=== PATIENT | male | born 1990 | race American Indian/Alaskan Native ===

== ENCOUNTER 2017-10-30 09:19 | Emergency (ER) | payer OTHER ==
[2017-10-30] MEDS ORDERED: Sodium Chloride 0.9% 1,000 ML IV STA (10:29)
[2017-10-30 11:09] LABS: BASO # 0.01 K/mm3 (0.0-2.0); BASO % 0.2 % (0.0-3.0); EOS # 0.3 (0.0-0.7); GRAN # 3.36 (1.4-6.5); GRAN % 52.3 % (50.0-68.0); HEMOGLOBIN 13.1 g/dL (14.0-18.0); LYMPH # 2.3 (1.2-3.4); LYMPH % 35.3 % (22.0-35.0); MEAN CELL VOLUME 92.6 fl (80.0-105.0); MEAN CORPUSCULAR HEMOGLOBIN 28.7 pg (25.0-35.0); MEAN PLATELET VOLUME 11.5 fl (7.0-11.0); MONO # 0.5 (0.1-0.6); MONO % 8.2 % (1.0-6.0); RBC 4.57 10^6/uL (3.5-6.1); RED CELL DISTRIBUTION WIDTH 12.2 % (11.5-14.5); WHITE BLOOD COUNT 6.4 10^3/ul (4.5-11.0)
[2017-10-30 11:11] VITALS: RESP 18; TEMP 97.9
[2017-10-30 11:17] LABS: ALB/GLOB RATIO 1.3 (1.1-1.8); ALBUMIN 4.1 g/dL (3.0-4.8); ALT/SGPT 45 U/L (7-56); AST/SGOT 41 U/L (17-59); BLOOD UREA NITROGEN 11 mg/dL (7-21); CALCIUM 9.7 mg/dL (8.4-10.5); GFR AFRICAN-AMERICAN > 60; GFR NON-AFRICAN AMERICAN > 60
[2017-10-30 11:21] LABS: INFLUENZA A B NEGATIVE FOR FLU A/B (NEGATIVE)
--- NOTE | 2017-10-30 12:02 | ED PDOC ---
Arrival/HPI - General Chief Complaint: ENT Problem Time Seen by Provider: 10/30/17 09:21 Historian: Patient - History of Present Illness Narrative History of Present Illness (Text): 10/30/17 11:58 27-year-old male presents today with a one-week history of intermittent headaches. Patient states he has a history of headaches but he can't seem to get this headache to go away. Patient states the headache is throbbing and fluctuates from the frontal to the posterior to the right side of the head. Patient also states over the past 3-4 days he developed sore throat and subjective fevers at home. Patient complaining of chills and body aches. He denies dizziness or weakness. Denies abdominal pain. No nausea or vomiting. No other complaints. Positive sick contacts at home. Past Medical History - Provider Review Nursing Documentation Reviewed: Yes - Travel History Have you recently traveled outside [place] w/in the past 3 mons?: No - Infectious Disease Hx of Infectious Diseases: None - Tetanus Immunization Tetanus Immunization: Unknown - Pulmonary Hx Asthma: Yes - Psychiatric Hx Depression: Yes Hx Substance Use: No - Anesthesia Hx Anesthesia: No Hx Anesthesia Reactions: No Hx Malignant Hyperthermia: No Family/Social History - Physician Review Nursing Documentation Reviewed: Yes Family/Social History: Unknown Family HX Smoking Status: Never Smoked Hx Alcohol Use: No Hx Substance Use: No Allergies/Home Meds Allergies/Adverse Reactions: Allergies No Known Allergies Allergy (Verified 10/30/17 09:58) Home Medications: Home Meds Medication Instructions Recorded Confirmed Venlafaxine [Effexor] 1 tab PO DAILY 10/30/17 10/30/17 Review of Systems - Review of Systems Constitutional: Fevers. absent: Fatigue ENT: Sore Throat, Sinus Congestion Respiratory: absent: SOB, Cough Cardiovascular: absent: Chest Pain, Palpitations Gastrointestinal: absent: Abdominal Pain, Nausea, Vomiting Genitourinary Male: absent: Dysuria Musculoskeletal: Arthralgias. absent: Neck Pain Skin: absent: Rash, Pruritis Neurological: Headache. absent: Dizziness Psychiatric: absent: Anxiety, Depression Physical Exam Vital Signs Reviewed: Yes Vital Signs Temp Pulse Resp BP Pulse Ox 10/30/17 12:23 79 18 121/68 98 10/30/17 11:10 97.9 F 86 18 124/71 97 10/30/17 09:34 97.1 F L 96 H 20 126/78 98 Temperature: Afebrile Blood Pressure: Normal Pulse: Regular Respiratory Rate: Normal Appearance: Positive for: Well-Appearing, Non-Toxic, Comfortable Pain Distress: None Mental Status: Positive for: Alert and Oriented X 3 - Systems Exam Head: Present: Atraumatic Conjunctiva: Present: Normal Ears: Present: Normal, NORMAL TM Mouth: Present: Moist Mucous Membranes, Normal Lips, Normal Tounge. No: Drooling, Trismus Pharnyx: Present: ERYTHEMA. No: EXUDATE, TONSILS ENLARGED, Peritonsilar Swelling, Uvular Deviation, Muffled/Hoarse Voice Nose (External): Present: Atraumatic Nose (Internal): Present: Normal Inspection, Clear Mucous Neck: Present: Normal Range of Motion, Trachea Midline. No: Meningeal Signs, Lymphadenopathy Respiratory/Chest: Present: Clear to Auscultation, Good Air Exchange. No: Respiratory Distress, Accessory Muscle Use Cardiovascular: Present: Regular Rate and Rhythm, Normal S1, S2. No: Murmurs Abdomen: No: Tenderness, Rebound, Guarding Back: Present: Normal Inspection Upper Extremity: Present: Normal ROM Lower Extremity: Present: Normal ROM Neurological: Present: GCS=15, Speech Normal Skin: Present: Warm, Dry, Normal Color. No: Rashes Psychiatric: Present: Alert, Oriented x 3 Medical Decision Making ED Course and Treatment: 10/30/17 12:00 Patient is nontoxic well-appearing. C/o bodyaches, sore throat and headache toradol IM NS iv bolus rapid flu; negative rapid strep; Positive amoxicillin PO head ct; FINDINGS: HEMORRHAGE: No intracranial hemorrhage. BRAIN: No mass effect or edema. No atrophy or chronic microvascular ischemic changes. VENTRICLES: Unremarkable. No hydrocephalus. CALVARIUM: Unremarkable. PARANASAL SINUSES: Unremarkable as visualized. No significant inflammatory changes. MASTOID AIR CELLS: Unremarkable as visualized. No inflammatory changes. OTHER FINDINGS: None. IMPRESSION: Normal CT of the Head. Patient reassessment: Pt feeling better; vitals stable. discussed all results with patient. I advised follow up with primary care physician within the next 2 days. I advised increase fluids and return if symptoms worsen persist or if new symptoms develop Patient verbalizes understanding of discharge instructions and need for immediate followup. all aspects of this case were discussed the attending of record. IMPRESSION;pharyngitis Motrin every 6 hours as needed for pain/fever reduction Increase fluids Amoxicillin 3 times daily x 10 days. Saltwater gargles, throat lozenges Followup with primary care physician the next 2 days Return if symptoms worsen persist or if new symptoms develop: Continued high fevers, dizziness, weakness, chest pain or shortness of breath vomiting/diarrhea , or if any other concerning symptoms develop 10/30/17 13:48 - Lab Interpretations Lab Results: 10/30/17 10:50 10/30/17 10:50 Lab Results 10/30/17 10:50: WBC 6.4, RBC 4.57, Hgb 13.1 L, Hct 42.3, MCV 92.6, MCH 28.7, MCHC 31.0, RDW 12.2, Plt Count 261, MPV 11.5 H, Gran % 52.3, Lymph % (Auto) 35.3 H, [place] % (Auto) 8.2 H, Eos % (Auto) 4.0, Baso % (Auto) 0.2, Gran # 3.36, Lymph # (Auto) 2.3, [place] # (Auto) 0.5, Eos # (Auto) 0.3, Baso # (Auto) 0.01 10/30/17 10:50: Sodium 138, Potassium 4.0, Chloride 101, Carbon Dioxide 31, Anion Gap 11, BUN 11, Creatinine 1.4, Est GFR ( Amer) > 60, Est GFR (Non- Af Amer) > 60, Random Glucose 88, Calcium 9.7, Total Bilirubin 1.0, AST 41, ALT 45, Alkaline Phosphatase 55, Total Protein 7.3, Albumin 4.1, Globulin 3.2, Albumin/Globulin Ratio 1.3 10/30/17 10:35: Influenza Typ A,B (EIA) Negative for flu a/b, Grp A Beta Strep Ag Positive H - RAD Interpretation Radiology Orders: 10/30/17 12:23 HEAD W/O CONTRAST [CT] Stat - Medication Orders Current Medication Orders: Discontinued Medications Amoxicillin (Amoxil 500 Mg Cap) 500 mg PO STAT STA PRN Reason: Protocol Stop: 10/30/17 11:37 Last Admin: 10/30/17 12:00 Dose: 500 mg Sodium Chloride (Sodium Chloride 0.9%) 1,000 mls @ 999 mls/hr IV .Q1H1M STA Stop: 10/30/17 11:29 Last Admin: 10/30/17 10:57 Dose: 999 mls/hr eMAR Start Stop Document 10/30/17 10:57 GMI (Rec: 10/30/17 10:57 GMI [place] [id number]) Intravenous Solution Start Date 10/30/17 Start Time 10:57 End Date 10/30/17 End time 12:26 Total Infusion Time 89 Ketorolac Tromethamine (Toradol) 30 mg IVP STAT STA Stop: 10/30/17 10:30 Last Admin: 10/30/17 10:58 Dose: 30 mg [facility] Pain Assessment Document 10/30/17 10:58 GMI (Rec: 10/30/17 10:58 GMI [place] [id number]) Pain Reassessment Is this a pain reassessment? Yes Sleep Is patient sleeping during reassessment? No Presence of Pain Presence of Pain Yes Pain Scale Used Pain Scale Used Numeric Location Upper or Lower Upper Pain Location Body Machine Technician Description Description Constant Pain Behavior Facial Grimacing Alleviating Factors/Management Distraction Techniques Alleviating Factors Medication IVP Administration Document 10/30/17 10:58 GMI (Rec: 10/30/17 10:58 GMI [place] [id number]) Charges for Administration # of IVP Administrations 1 Re-Assess: [facility] Pain Assessment Document 10/30/17 11:58 GMI (Rec: 10/30/17 12:27 GMI [place] [id number]) Pain Reassessment Is this a pain reassessment? Yes Sleep Is patient sleeping during reassessment? No Presence of Pain Presence of Pain Yes Pain Scale Used Pain Scale Used Numeric Location Upper or Lower Upper Pain Location Body Machine Technician Description Description Intermittent Intensity of Pain at present 5 Alleviating Factors Position Change Disposition/Present on Arrival - Present on Arrival Any Indicators Present on Arrival: No History of DVT/PE: No History of Uncontrolled Diabetes: No Urinary Catheter: No History of Decub. Ulcer: No History Surgical Site Infection Following: None - Disposition Have Diagnosis and Disposition been Completed?: Yes Diagnosis: Pharyngitis Disposition: HOME/ ROUTINE Disposition Time: 13:49 Patient Plan: Discharge Condition: GOOD Discharge Instructions (ExitCare): Sore Throat, Adult (DC) Additional Instructions: Motrin every 6 hours as needed for pain/fever reduction Increase fluids Amoxicillin 3 times daily x 10 days. Saltwater gargles, throat lozenges Followup with primary care physician the next 2 days Return if symptoms worsen persist or if new symptoms develop: Continued high fevers, dizziness, weakness, chest pain or shortness of breath vomiting/diarrhea , or if any other concerning symptoms develop Prescriptions: Amoxicillin 500 mg PO TID #30 tab Ibuprofen [Motrin] 600 mg PO Q6H PRN #20 tab PRN Reason: pain/fever reduction Referrals: Carlton Baig DO [Doctor Oste[facility]] - Follow up with primary Jeniffer Cano MD [Staff Provider] - Follow up with primary Forms: [employer] (Polish), WORK NOTE
--- NOTE | 2017-10-30 13:28 | CT ---
PROCEDURE: CT HEAD WITHOUT CONTRAST. HISTORY: headache x 1 week COMPARISON: None available. TECHNIQUE: Axial computed tomography images were obtained through the head/brain without intravenous contrast. Radiation dose: Total exam DLP = 839 mGy-cm. This CT exam was performed using one or more of the following dose reduction techniques: Automated exposure control, adjustment of the mA and/or kV according to patient size, and/or use of iterative reconstruction technique. FINDINGS: HEMORRHAGE: No intracranial hemorrhage. BRAIN: No mass effect or edema. No atrophy or chronic microvascular ischemic changes. VENTRICLES: Unremarkable. No hydrocephalus. CALVARIUM: Unremarkable. PARANASAL SINUSES: Unremarkable as visualized. No significant inflammatory changes. MASTOID AIR CELLS: Unremarkable as visualized. No inflammatory changes. OTHER FINDINGS: None. IMPRESSION: Normal CT of the Head.
[2017-10-30 14:03] VITALS: BP 124/51; PULSE 65; O2SAT 100
== END 2017-10-30 14:12 | disposition home or self-care (01) ==
LOC: MERGE 09:19 → ED 09:19
DX: J02.9 Acute pharyngitis, unspecified (principal)
CPT/HCPCS: 70450; 80053; 85025; 87430; 87804; 96361; 96374; 99284; J1885; J7040

== ENCOUNTER 2018-09-11 05:42 | Emergency (ER) | payer OTHER ==
[2018-09-11 05:46] VITALS: BMI 25.8
[2018-09-11 05:56] VITALS: TEMP 98.2
--- NOTE | 2018-09-11 06:12 | ED PDOC ---
Arrival/HPI - General Chief Complaint: Substance Abuse Time Seen by Provider: 09/11/18 05:43 Historian: Patient, EMS - History of Present Illness Narrative History of Present Illness (Text): 09/11/18 06:08 28 year old male, with no significant past medical history, presents to the emergency department status post heroin overdose. Patient admits to using heroin through nasal inhalation. EMS states narcan was given en route with positive result, patient is awake upon arrival. Patient admits to occasional drug use including cocaine and marijuana as well. Patient denies any fevers, headache, abdominal pain, chest pain, shortness of breath, or any other complaints. Time/Duration: Prior to Arrival Symptom Onset: Gradual Symptom Course: Improving Activities at Onset: Light Past Medical History - Provider Review Nursing Documentation Reviewed: Yes - Infectious Disease Hx of Infectious Diseases: None - Tetanus Immunization Tetanus Immunization: Unknown - Pulmonary Hx Asthma: Yes - Psychiatric Hx Depression: Yes Hx Substance Use: No - Anesthesia Hx Anesthesia: No Hx Anesthesia Reactions: No Hx Malignant Hyperthermia: No - Suicidal Assessment Feels Threatened In Home Enviroment: No Family/Social History - Physician Review Nursing Documentation Reviewed: Yes Family/Social History: No Known Family HX Smoking Status: Never Smoked Hx Alcohol Use: No Hx Substance Use: No Allergies/Home Meds Allergies/Adverse Reactions: Allergies No Known Allergies Allergy (Unverified 09/11/18 05:48) Home Medications: Home Meds Medication Instructions Recorded Confirmed Venlafaxine [Effexor] 1 tab PO DAILY 10/30/17 09/11/18 Review of Systems - Physician Review All systems were reviewed & negative as marked: Yes - Review of Systems Constitutional: Other (Overdose). absent: Fevers Respiratory: absent: SOB Cardiovascular: absent: Chest Pain Gastrointestinal: absent: Abdominal Pain Neurological: absent: Headache Physical Exam Vital Signs Reviewed: Yes Vital Signs Temp Pulse Resp BP Pulse Ox 09/11/18 05:50 98.2 F 109 H 22 118/81 89 L Temperature: Afebrile Blood Pressure: Normal Pulse: Tachycardic Respiratory Rate: Normal Appearance: Positive for: Well-Appearing, Non-Toxic, Comfortable Pain Distress: None Mental Status: Positive for: Alert and Oriented X 3 - Systems Exam Head: Present: Atraumatic, Normocephalic Pupils: Present: PERRL, Other (eyes slightly dialated, yet reactive) Extroacular Muscles: Present: EOMI Conjunctiva: Present: Normal Mouth: Present: Moist Mucous Membranes Neck: Present: Normal Range of Motion Respiratory/Chest: Present: Clear to Auscultation, Good Air Exchange. No: Respiratory Distress, Accessory Muscle Use Cardiovascular: Present: Regular Rate and Rhythm, Normal S1, S2. No: Murmurs Abdomen: No: Tenderness, Distention, Peritoneal Signs Back: Present: Normal Inspection Upper Extremity: Present: Normal Inspection. No: Cyanosis, Edema Lower Extremity: Present: Normal Inspection. No: Edema Neurological: Present: GCS=15, CN II-XII Intact, Speech Normal Skin: Present: Warm, Dry, Normal Color. No: Rashes Psychiatric: Present: Alert, Oriented x 3, Normal Insight, Normal Concentration Medical Decision Making ED Course and Treatment: 09/11/18 06:13 Impression: 28 year old male presents for evaluation status post heroin overdose Plan: -- Reassess and disposition Prior Visits: Notes and results from previous visits were reviewed. Progress Notes: Patient is refusing blood work at this time. 09/11/18 06:46 Patient awake and alert. Still refusing blood work. Patient to be discharged with follow up instructions. - Scribe Statement The provider has reviewed the documentation as recorded by the Indu Neumann Provider Scribe Attestation: All medical record entries made by the Shelbiibnasima were at my direction and personally dictated by me. I have reviewed the chart and agree that the record accurately reflects my personal performance of the history, physical exam, medical decision making, and the department course for this patient. I have also personally directed, reviewed, and agree with the discharge instructions and disposition. Disposition/Present on Arrival - Present on Arrival Any Indicators Present on Arrival: No History of DVT/PE: No History of Uncontrolled Diabetes: No Urinary Catheter: No History of Decub. Ulcer: No History Surgical Site Infection Following: None - Disposition Have Diagnosis and Disposition been Completed?: Yes Diagnosis: Drug abuse Disposition: HOME/ ROUTINE Disposition Time: 06:55 Patient Problems: Current Active Problems Problem Status Onset Drug abuse Acute Condition: IMPROVED Discharge Instructions (ExitCare): Drug Abuse and Drug Addiction (DC) Additional Instructions: ISAIAH MILTON, thank you for letting us take care of you today. The emergency medical care you received today was directed at your acute symptoms. If you were prescribed any medication, please fill it and take as directed. It may take several days for your symptoms to resolve. Return to the Emergency Department if your symptoms worsen, do not improve, or if you have any other problems. Please contact your doctor or call one of the physicians/clinics you have been referred to that are listed on the Patient Visit Information form that is included in your discharge packet. Bring any paperwork you were given at discharge with you along with any medications you are taking to your follow up visit. Our treatment cannot replace ongoing medical care by a primary care provider outside of the emergency department. Thank you for allowing the [facility] team to be part of your care today. Follow up with your primary care doctor or our clinic this week for re- evaluation and further management. Referrals: Kerline Perez MD [Medical Doctor] - Follow up with primary [facility] [Outside] - Follow up with primary Forms: [employer] (Sammarinese)
[2018-09-11 06:58] VITALS: PULSE 97
[2018-09-11 07:35] VITALS: BP 107/52; RESP 18; O2SAT 96
== END 2018-09-11 07:25 | disposition home or self-care (01) ==
LOC: ED 05:42
DX: F19.10 Other psychoactive substance abuse, uncomplicated (principal)